=== PATIENT | female | born 2000 | race Asian ===

== ENCOUNTER 2018-05-30 01:01 | Emergency (ER) | payer BC, SELFPAY ==
[2018-05-30 01:07] VITALS: BP 125/80; PULSE 85; RESP 18; TEMP 36.9; O2SAT 100
--- NOTE | 2018-05-30 01:09 | W.ED.GENAD ---
Discharge Plan Disposition Patient Disposition: HOME Condition: Stable Discharge Details Chief Complaint: PsychEval Clinical Impression: Acute paranoia ED Provider: Russ Damon Home Meds and New Rx's Prescriptions: No Action No Known Home Meds RF: 0 Discharge Instructions Additional Instructions: IF you develop severe headaches, fevers, neck stiffness, or thoughts of wanting to harm yourself or others return to the emergency department for reevaluation Medical Decision Making 17 yo female who denies chronic medical problems comes in with chief complaint of friends concern for paranoia prior to arrival. The two friends and the pt are from out of town staying at the local [facility]. The friends state that this evening the pt was acting paranoid stating things such as this is not reality and crying. The pt has no known psych hx. She denies drug or alcohol use. She arrives caox4 with clear speech and no focal neuro deficits. She denies si/hi, visual or auditory hallucinations and is speaking clearly. She has no complaints at this time and is requesting d/c. The friends state that she is now acting more like herself. Unclear what caused her earlier possible paranoia, but given she is caox4 without evidence of hallucinations, si or hi do not feel I can keep her against her will. I did recommend she return if she does develop any concerning symptoms Differential Diagnosis drug reaction, paranoia HPI General Mode of arrival: ambulatory. Date/Time Provider Initiated Documentation: 05/30/18 01:09. Limitations to Documentation: no limitations. Information obtained by: patient. History of Present Illness 17 year old F presents to the emergency department with the chief complaint of friends state she was paranoid, pt without complaints at this time, Patient started experiencing this hour(s) (1) No relieving factors improve symptom(s), No exacerbating factors reported . Patient notes no other symptoms.. Patient did receive the following treatments prior to arrival, none Related Data Home Medications Medication Instructions Recorded Confirmed Unknown [No Known Home Meds] 05/30/18 05/30/18 Allergies Allergy/AdvReac Type Severity Reaction Status Date / Time No Known Allergies Allergy Unverified 05/30/18 01:11 Review of Systems Review of Systems All systems reviewed & are unremarkable except as noted in HPI and below Constitutional Denies chills and Denies fever(s) ENT Denies change in voice Cardiovascular Denies chest pain and Denies dyspnea Respiratory Denies cough and Denies dyspnea Gastrointestinal Denies abdominal pain, Denies nausea and Denies vomiting Integumentary/Breasts Denies rash Psychiatric Denies depression [facility] Social History Smoking and Tabacco status: Never Exam Const General: no acute distress Orientation: alert HENMT Head: normal to inspection Ears: external ears normal General nose exam: external nose normal Mouth: moist mucous membranes Eyes General: appearance normal, both eyes and all related structures Neck Neck: normal visual inspection Resp Effort & Inspection: normal respiratory effort and able to speak in complete sentences Cardio Rate: regular rate Skin General skin exam: no rashes or lesions noted Neuro General: alert and oriented x3 Extrem General: normal to inspection Psych Appearance: grossly normal Mental Status: mental status grossly normal Speech and Movement: speech and movement normal Mood: congruent mood Affect: normal affect Attitude: cooperative Thought Process: normal Thought Content: normal Insight: insight good Judgment: judgment good
--- NOTE | 2018-05-30 01:13 | NUR.NOTE ---
Nursing Note: Pt laughing through triage, states I dont need to be here, maybe I should just leave. Presents w/two friends who are visiting this area from out of state with her for spring break and are concerned about her mental state. Pt refuses to leave room and void or change. Will await MD assessment, CTM, and proceed per MD direction.
--- NOTE | 2018-05-30 01:24 | ED.GENADUL_ITS ---
Discharge Plan Disposition Patient Disposition: HOME Condition: Stable Discharge Details Chief Complaint: PsychEval Clinical Impression: Acute paranoia ED Provider: Russ Damon Home Meds and New Rx's Prescriptions: No Action No Known Home Meds RF: 0 Discharge Instructions Additional Instructions: IF you develop severe headaches, fevers, neck stiffness, or thoughts of wanting to harm yourself or others return to the emergency department for reevaluation Medical Decision Making 17 yo female who denies chronic medical problems comes in with chief complaint of friends concern for paranoia prior to arrival. The two friends and the pt are from out of town staying at the local [facility]. The friends state that this evening the pt was acting paranoid stating things such as this is not reality and crying. The pt has no known psych hx. She denies drug or alcohol use. She arrives caox4 with clear speech and no focal neuro deficits. She denies si/hi, visual or auditory hallucinations and is speaking clearly. She has no complaints at this time and is requesting d/c. The friends state that she is now acting more like herself. Unclear what caused her earlier possible paranoia, but given she is caox4 without evidence of hallucinations, si or hi do not feel I can keep her against her will. I did recommend she return if she does develop any concerning symptoms Differential Diagnosis drug reaction, paranoia HPI General Mode of arrival: ambulatory . Date/Time Provider Initiated Documentation: 05/30/18 01:09 . Limitations to Documentation: no limitations . Information obtained by: patient . History of Present Illness 17 year old F presents to the emergency department with the chief complaint of friends state she was paranoid, pt without complaints at this time, Patient started experiencing this hour(s) (1) No relieving factors improve symptom(s), No exacerbating factors reported . Patient notes no other symptoms.. Patient did receive the following treatments prior to arrival, none Related Data Home Medications Medication Instructions Recorded Confirmed Unknown [No Known Home Meds] 05/30/18 05/30/18 Allergies Allergy/AdvReac Type Severity Reaction Status Date / Time No Known Allergies Allergy Unverified 05/30/18 01:11 Review of Systems Review of Systems All systems reviewed & are unremarkable except as noted in HPI and below Constitutional Denies chills and Denies fever(s) ENT Denies change in voice Cardiovascular Denies chest pain and Denies dyspnea Respiratory Denies cough and Denies dyspnea Gastrointestinal Denies abdominal pain, Denies nausea and Denies vomiting Integumentary/Breasts Denies rash Psychiatric Denies depression [facility] Social History Smoking and Tabacco status: Never Exam Const General: no acute distress Orientation: alert HENMT Head: normal to inspection Ears: external ears normal General nose exam: external nose normal Mouth: moist mucous membranes Eyes General: appearance normal, both eyes and all related structures Neck Neck: normal visual inspection Resp Effort & Inspection: normal respiratory effort and able to speak in complete sentences Cardio Rate: regular rate Skin General skin exam: no rashes or lesions noted Neuro General: alert and oriented x3 Extrem General: normal to inspection Psych Appearance: grossly normal Mental Status: mental status grossly normal Speech and Movement: speech and movement normal Mood: congruent mood Affect: normal affect Attitude: cooperative Thought Process: normal Thought Content: normal Insight: insight good Judgment: judgment good
== END 2018-05-30 01:34 | disposition home or self-care (01) ==
PROVIDERS: Emergency Provider Emergency Medicine
DX: F22 Delusional disorders (principal)
CPT/HCPCS: 99283